=== PATIENT | male | born 1960 | race Caucasian/White ===

== ENCOUNTER 2018-02-13 06:57 | Inpatient (IN) | payer OTHER ==
[2018-02-13] VITALS (14 sets, daily range): BP systolic 131–179; BP diastolic 72–102
[~2018-02-13] VITALS: Ht 175.3 cm; Wt 91.3 kg
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
[2018-02-13] MEDS ORDERED: DIPHTH,PERTUSS(ACELL),TET TOX 0.5 ML DISP.SYRIN. VAX IM ONE (07:15)
[2018-02-13] MEDS ORDERED: MORPHINE SULFATE 10 MG/ML VIAL. IV ONE ×2 (07:15→10:15)
[2018-02-13] MEDS ORDERED: IV NORMAL SALINE 1000ML BAG 1,000 ML IV ONE ×2 (07:30→08:30)
[2018-02-13] MEDS ORDERED: IOHEXOL 300 MG/ML 100ML VIAL. IV ONE (07:45)
[2018-02-13 07:57] LABS: BASO % 1 % (0-3); EOS # 0.2 x10^3/uL (0.0-0.7); EOS % 4 % (0-3); HEMATOCRIT 41.3 % (39.0-53.0); HEMOGLOBIN 14.5 g/dL (13.0-17.5); LYMPH % 16 % (24-48); MEAN CORPUSCULAR HEMOGLOBIN 31 pg (25-35); MEAN CORPUSCULAR HGB CONC 35 g/dL (31-37); MEAN CORPUSCULAR VOLUME 89 fL (79-100); MONO # 0.7 x10^3/uL (0.0-1.1); MONO % 10 % (0-9); NEUT # 4.4 x10^3uL (1.8-7.7); NEUT % 70 % (31-73); PLATELET COUNT 156 x10^3/uL (140-400); RED BLOOD COUNT 4.65 x10^6/uL (4.30-5.70); RED CELL DISTRIBUTION WIDTH 13.7 % (11.5-14.5); WHITE BLOOD COUNT 6.3 x10^3/uL (4.0-11.0)
[2018-02-13] MEDS ORDERED: CONTRAST GIVEN. MC PRN (08:00)
[2018-02-13 08:05] LABS: CREATININE 0.9 mg/dL (0.7-1.3); GFR 87.6; POTASSIUM 3.7 mmol/L (3.5-5.1)
[2018-02-13 08:11] LABS: ALBUMIN 3.8 g/dL (3.4-5.0); DIRECT BILIRUBIN 0.1 mg/dL (0.0-0.2); TOTAL BILIRUBIN 0.4 mg/dL (0.2-1.0); TOTAL PROTEIN 7.9 g/dL (6.4-8.2)
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
[2018-02-13] MEDS: IV NORMAL SALINE 1000ML BAG 1,000 ML IV SCH ×2 (09:40→23:55)
[2018-02-13] MEDS ORDERED: MORPHINE SULFATE 4 MG/ML VIAL. IV PRN (09:45)
[2018-02-13] MEDS ORDERED: ACETAMINOPHEN 325 MG TABLET. PO PRN ×2 (09:45→13:00)
[2018-02-13] MEDS ORDERED: ONDANSETRON PF 4 MG/2 ML VIAL. IV PRN ×2 (09:45→13:00)
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
[2018-02-13] MEDS ORDERED: PANT20TA2 PO (12:07)
[2018-02-13] MEDS ORDERED: LOSA50TA7 PO (12:07)
[2018-02-13] MEDS ORDERED: CYCL10TA2 PO (12:07)
[2018-02-13] MEDS ORDERED: EZET10TA18 PO (12:07)
[2018-02-13] MEDS ORDERED: ALLO300T PO (12:07)
[2018-02-13] MEDS ORDERED: DOCUSATE SODIUM 100 MG CAPSULE. PO PRN (13:00)
[2018-02-13] MEDS ORDERED: traMADol 50 MG TABLET PO PRN (13:00)
[2018-02-13] MEDS ORDERED: LABETALOL 20 MG/4 ML DISP.SYRIN. IVP PRN (13:00)
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
[2018-02-13] MEDS: LOSARTAN POTASSIUM 50 MG TABLET. PO SCH (14:00)
[2018-02-13] MEDS: PANTOPRAZOLE 40 MG TABLET.DR. PO SCH (14:00)
[2018-02-13] MEDS: EZETIMIBE 10 MG TABLET. PO SCH (14:00)
[2018-02-13] MEDS: FOLIC ACID 1 MG TABLET. PO SCH (14:00)
[2018-02-13] MEDS: THIAMINE 100 MG TABLET. PO SCH (14:00)
[2018-02-13] MEDS: ALLOPURINOL 300 MG TABLET. PO SCH (14:00)
[2018-02-13] MEDS: HYDROcodone/APAP 5/325MG 1 TAB TABLET PO PRN ×2 (14:37→21:17)
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
[2018-02-13] MEDS ORDERED: NEOMY/BACITR/POLYMYXIN OINT PACKET. TP ONE (18:15)
[2018-02-14] VITALS (19 sets, daily range): BP systolic 114–163; BP diastolic 74–98
[2018-02-14 00:20] LABS: AMPHETAMINE/METHAMPHETAMINE NEG (NEG); BARBITURATES NEG (NEG); BENZODIAZEPINES NEG (NEG); CANNABINOIDS NEG (NEG); COCAINE NEG (NEG); METHADONE NEG (NEG); OPIATES POS (NEG); PHENCYCLIDINE NEG (NEG)
[2018-02-14] MEDS: HYDROcodone/APAP 5/325MG 1 TAB TABLET PO PRN ×5 (01:06→18:23)
[2018-02-14] MEDS: PANTOPRAZOLE 40 MG TABLET.DR. PO SCH (07:47)
[2018-02-14 07:54] LABS: BASO % 0 % (0-3); EOS # 0.2 x10^3/uL (0.0-0.7); EOS % 2 % (0-3); HEMATOCRIT 40.6 % (39.0-53.0); HEMOGLOBIN 14.5 g/dL (13.0-17.5); LYMPH # 1.5 x10^3/uL (1.0-4.8); LYMPH % 17 % (24-48); MEAN CORPUSCULAR HEMOGLOBIN 32 pg (25-35); MEAN CORPUSCULAR HGB CONC 36 g/dL (31-37); MEAN CORPUSCULAR VOLUME 89 fL (79-100); MONO % 11 % (0-9); NEUT # 6.4 x10^3uL (1.8-7.7); NEUT % 70 % (31-73); PLATELET COUNT 147 x10^3/uL (140-400); RED BLOOD COUNT 4.56 x10^6/uL (4.30-5.70); RED CELL DISTRIBUTION WIDTH 13.4 % (11.5-14.5); WHITE BLOOD COUNT 9.2 x10^3/uL (4.0-11.0)
[2018-02-14 08:03] LABS: CALCIUM 8.4 mg/dL (8.5-10.1); CREATININE 0.8 mg/dL (0.7-1.3); GFR 100.4; POTASSIUM 3.6 mmol/L (3.5-5.1)
[2018-02-14] MEDS: EZETIMIBE 10 MG TABLET. PO SCH (10:05)
[2018-02-14] MEDS: THIAMINE 100 MG TABLET. PO SCH (10:05)
[2018-02-14] MEDS: ALLOPURINOL 300 MG TABLET. PO SCH (10:05)
[2018-02-14] MEDS: FOLIC ACID 1 MG TABLET. PO SCH (10:05)
[2018-02-14] MEDS: LOSARTAN POTASSIUM 50 MG TABLET. PO SCH (10:05)
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
[2018-02-14 13:23] LABS: BILIRUBIN,URINE NEGATIVE (NEG); CLARITY,URINE CLEAR; COLOR,URINE YELLOW; NITRITE,URINE NEGATIVE (NEG); PH,URINE 6.5; PROTEIN,URINE NEGATIVE (NEG-TRACE); UROBILINOGEN,URINE 0.2 mg/dL (0.2 mg/dL)
[2018-02-14 13:34] LABS: BACTERIA,URINE 0 /HPF (0-FEW); RBC,URINE OCC /HPF (0-2); WBC,URINE 0 /HPF (0-4)
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
[2018-02-14] MEDS: MORPHINE SULFATE 2 MG/ML VIAL. IV PRN (21:35)
[2018-02-15 03:00] VITALS: BP 140/87
[2018-02-15] MEDS: HYDROcodone/APAP 5/325MG 1 TAB TABLET PO PRN ×3 (04:09→13:37)
[2018-02-15] MEDS: MORPHINE SULFATE 2 MG/ML VIAL. IV PRN (04:10)
[2018-02-15] MEDS: PANTOPRAZOLE 40 MG TABLET.DR. PO SCH (06:47)
[2018-02-15 07:00] VITALS: BP 138/102
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
[2018-02-15 08:04] LABS: BASO % 0 % (0-3); EOS # 0.2 x10^3/uL (0.0-0.7); EOS % 2 % (0-3); HEMATOCRIT 41.8 % (39.0-53.0); HEMOGLOBIN 14.8 g/dL (13.0-17.5); LYMPH # 1.8 x10^3/uL (1.0-4.8); LYMPH % 19 % (24-48); MEAN CORPUSCULAR HEMOGLOBIN 32 pg (25-35); MEAN CORPUSCULAR HGB CONC 36 g/dL (31-37); MEAN CORPUSCULAR VOLUME 89 fL (79-100); MONO # 0.8 x10^3/uL (0.0-1.1); MONO % 9 % (0-9); NEUT # 6.5 x10^3uL (1.8-7.7); NEUT % 70 % (31-73); PLATELET COUNT 163 x10^3/uL (140-400); RED CELL DISTRIBUTION WIDTH 13.5 % (11.5-14.5); WHITE BLOOD COUNT 9.3 x10^3/uL (4.0-11.0)
[2018-02-15 08:46] LABS: CALCIUM 9.1 mg/dL (8.5-10.1); CREATININE 0.8 mg/dL (0.7-1.3); GFR 100.4; POTASSIUM 3.6 mmol/L (3.5-5.1)
[2018-02-15] MEDS: FOLIC ACID 1 MG TABLET. PO SCH (08:59)
[2018-02-15] MEDS: ALLOPURINOL 300 MG TABLET. PO SCH (09:00)
[2018-02-15] MEDS: LOSARTAN POTASSIUM 50 MG TABLET. PO SCH (09:00)
[2018-02-15] MEDS: THIAMINE 100 MG TABLET. PO SCH (09:00)
[2018-02-15] MEDS: EZETIMIBE 10 MG TABLET. PO SCH (09:00)
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
[2018-02-15 11:00] VITALS: BP 127/88
[2018-02-15 15:00] VITALS: BP 140/80
[2018-02-15] MEDS ORDERED: FOLI1TAB16 PO (15:02)
[2018-02-15] MEDS ORDERED: THIA100T22 PO (15:02)
[2018-02-15] MEDS ORDERED: TRAM50TA PO (15:02)
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
== END 2018-02-15 16:05 | disposition home or self-care (01) | DRG 86 ==
LOC: ER 06:57 → 1 WEST ICU 09:45 → 4 NORTH 02-14 16:52
PROVIDERS: ADMIT Internal Medicine; ATTEND Internal Medicine
PROC: 0HQ1XZZ Repair Face Skin, External Approach (ICD-10-PCS; principal; 2018-02-13)
DX: S06.350A Traumatic hemorrhage of left cerebrum without loss of consciousness, initial encounter (principal); F10.239 Alcohol dependence with withdrawal, unspecified; S06.2X0A Diffuse traumatic brain injury without loss of consciousness, initial encounter; V29.9XXA Motorcycle rider (driver) (passenger) injured in unspecified traffic accident, initial encounter; E66.01 Morbid (severe) obesity due to excess calories; S01.81XA Laceration without foreign body of other part of head, initial encounter; E78.5 Hyperlipidemia, unspecified; F17.210 Nicotine dependence, cigarettes, uncomplicated; I10 Essential (primary) hypertension; H53.8 Other visual disturbances; Y93.89 Activity, other specified; Y92.488 Other paved roadways as the place of occurrence of the external cause; Y99.8 Other external cause status; Z68.29 Body mass index [BMI] 29.0-29.9, adult; Z79.899 Other long term (current) drug therapy
CPT/HCPCS: 36415; 70450; 70486; 71260; 72125; 74177; 80048; 80076; 80307; 81001; 85025; 90471; 90715; 96361; 96374; J2270; J2405; J7030; Q9967; 99285-25; G0479

== ENCOUNTER → 2018-02-23 | Outpatient (CLI) | payer OTHER ==
[2018-02-15 15:00] VITALS: BP 140/80
[~2018-02-23] MED LIST: ALLO300T PO; CYCL10TA2 PO; EZET10TA18 PO; FOLI1TAB16 PO; LOSA50TA7 PO; PANT20TA2 PO; THIA100T22 PO; TRAM50TA PO
--- NOTE | 2018-02-23 09:17 | RAD ---
CT HEAD INDICATION: Follow-up intracranial bleed COMPARISON: 02/14/2018 Exposure: One or more of the following individualized dose reduction techniques were utilized for this examination: 1. Automated exposure control 2. Adjustment of the mA and/or kV according to patient size 3. Use of iterative reconstruction technique TECHNIQUE: 5 mm contiguous axial images were obtained from the skull base to the vertex in both bone and soft tissue algorithm. FINDINGS: The previously visualized subdural bleed along the left tentorium is not identified on today's examination. No evidence of acute intracranial hemorrhage. No extra-axial fluid collections. No mass effect or midline shift. Ventricular size is appropriate. Basal cisterns are patent. No fractures identified.Tamez-white differentiation is preserved.Globes and orbits are within normal limits. Paranasal sinuses and mastoid air cells are clear. IMPRESSION: Interval resolution of subdural bleed along the left tentorium. Electronically signed by: Jimmy Forman MD (02/23/2018 9:14 AM) [id number]
== END | disposition home or self-care (01) ==
LOC: CT 08:53
PROVIDERS: ATTEND Neurological Surgery
DX: S06.5X0D Traumatic subdural hemorrhage without loss of consciousness, subsequent encounter (principal); X58.XXXD Exposure to other specified factors, subsequent encounter
CPT/HCPCS: 70450

== ENCOUNTER → 2018-03-21 | Outpatient (CLI) | payer OTHER ==
[~2018-03-21] MED LIST changes: +LOSA-73 PO; -LOSA50TA7 PO
--- NOTE | 2018-03-21 19:08 | EEG ---
DATE OF SERVICE: 03/21/2018 EEG NUMBER: [id number]. OBJECTIVE: This is a 57-year-old male patient with a history of abnormal movements. EEG was requested to help rule out seizure. METHODS: Twenty electrodes were applied according to the international 10-20 electrode placement system. EKG monitoring, hyperventilation, intermittent photic stimulation, monopolar and bipolar montages are routinely utilized. The record was obtained on a digital system with video monitoring. FINDINGS: 1. Background: The patient was recorded in the awake and drowsy states. No sleep state was recorded. The overall background amplitude is 10-20 microvolts. A posterior dominant rhythm of 8-10 Hz is observed. 2. Abnormalities: No specific epileptiform discharge or electrographic seizure is seen. No focal or diffuse slowing. 3. Activation: Hyperventilation was performed with good efforts and normal response. Intermittent photic stimulation was performed with photic driving. No specific epileptiform discharge or electrographic seizure induced by hyperventilation or intermittent photic stimulation. IMPRESSION: This EEG is a normal study for the awake and drowsy states. No sleep state was recorded. No focal, lateralizing, specific epileptiform discharge or electrographic seizure is seen. ZEINA MONTERO MD DR: JULIANNE/rocael JOB#: [id number] / [id number] ANNITA
== END | disposition home or self-care (01) ==
LOC: RT 08:11
PROVIDERS: ATTEND Psychiatry & Neurology Neurology
DX: R93.0 Abnormal findings on diagnostic imaging of skull and head, not elsewhere classified (principal); E66.09 Other obesity due to excess calories; Z79.899 Other long term (current) drug therapy; Z87.891 Personal history of nicotine dependence
CPT/HCPCS: 95816